=== PATIENT | male | born 1945 | race Caucasian/White ===

== ENCOUNTER 2016-08-25 20:33 | Emergency (ER) | payer MEDICARE, BC ==
--- NOTE | 2016-09-04 08:39 | ER ---
ADMIT: 08/25/2016 RM/LOC: ER [facility] MR#: [id number] [address] [facility] [id number] SESAR GERONIMO [address] [place] [address] Emergency Room Report SEX: M AGE: 70 : 1945 DATE: 08/25/2016 HISTORY OF PRESENT ILLNESS: A 70-year-old gentleman, who had a right lower lobe lobectomy done on the of last month, comes to the Emergency Department with complaints of drainage from an op-site. He was at a restaurant when he noticed that his shirt became wet. It was a clear fluid. Feels wet with some clear fluid noted. See T-sheet for remainder of history and physical. CT scan revealed only postoperative changes, no subjective complications. CBC was significant for a white count of 10.7, hemoglobin 11.8. I did speak with his thoracic surgeon, felt that he can be discharged and follow up as scheduled in their surgical clinic. DIAGNOSIS: Postop complication. hPil Mistry MD/ saleem JOB #: [id number] CC: Ta Holt MD, Attending Physician [facility] Physician, Family Physician
== END 2016-08-25 23:32 | disposition home or self-care (01) ==
LOC: ER 20:33
DX: T81.89XA Other complications of procedures, not elsewhere classified, initial encounter (principal)